=== PATIENT | female | born 1965 | race Caucasian/White ===

== ENCOUNTER 2020-05-19 13:16 | Day surgery (SDC) | payer BC ==
[2020-05-19] MEDS ORDERED: Sodium Chloride 0.9(Preservative Free) 10 ML IJ ONE (13:17)
[2020-05-19] MEDS ORDERED: Depo-Medrol 40 MG/ML IM ONE (13:17)
[2020-05-19] MEDS ORDERED: Xylocaine 1% Vial 30 ML PF IJ ONE (13:17)
--- NOTE | 2020-05-19 17:53 | XRAY ---
Indication: Lumbar VERONICA. Intraoperative fluoroscopy was provided for 18 seconds. 2 digital spot images submitted for interpretation demonstrates midline posterior needle tip projecting just posterior to the L4-L5 interspace. Correlate with intraoperative findings/report.
--- NOTE | 2020-05-19 17:55 | XRAY ---
18 seconds fluoroscopy time in surgery for lumbar VERONICA.
== END 2020-05-19 16:50 | disposition home or self-care (01) ==
LOC: SDC-PAIN 13:16
PROVIDERS: ATTEND Psychiatry & Neurology Pain Medicine
DX: M54.16 Radiculopathy, lumbar region (principal); E11.9 Type 2 diabetes mellitus without complications; I10 Essential (primary) hypertension; Z79.899 Other long term (current) drug therapy
CPT/HCPCS: 72100; 77003; 82947; J1030; J2001

== ENCOUNTER 2020-06-23 08:01 | Day surgery (SDC) | payer BC ==
[2020-06-23] MEDS ORDERED: Xylocaine 1% Vial 30 ML PF IJ ONE (08:02)
[2020-06-23] MEDS ORDERED: Depo-Medrol 40 MG/ML IM ONE (08:02)
[2020-06-23] MEDS ORDERED: LIDOCAINE HCL 2% 100 MG/5 ML IJ ONE (08:02)
[2020-06-23] MEDS ORDERED: Ketamine HCl 50 MG/ML ONE (09:44)
[2020-06-23] MEDS ORDERED: DIPRIVAN 200 MG/20 ML IV ONE ×2 (09:44→09:54)
[2020-06-23] MEDS ORDERED: Lactated Ringers 1,000 ML IV ONE ×2 (09:58→11:00)
--- NOTE | 2020-06-23 11:49 | XRAY ---
36 seconds fluoroscopy time in surgery for bilateral L4-S1 MBB.
--- NOTE | 2020-06-23 11:55 | XRAY ---
Indication: Bilateral L4-S1 MBB. Intraoperative fluoroscopy provided for 36 seconds. Single digital spot image submitted for interpretation demonstrates posterior needle tips projecting over the expected left and right L4-S1 nerve roots. Correlate with intraoperative findings/report.
== END 2020-06-23 10:22 | disposition home or self-care (01) ==
LOC: SDC-PAIN 08:01
PROVIDERS: ATTEND Psychiatry & Neurology Pain Medicine
DX: M47.816 Spondylosis without myelopathy or radiculopathy, lumbar region (principal); E11.9 Type 2 diabetes mellitus without complications; I10 Essential (primary) hypertension; Z79.899 Other long term (current) drug therapy
CPT/HCPCS: 64493; 64494; 72020; 77002; 82947; J1030; J2001; J2704